=== PATIENT | male | born 1995 | race American Indian/Alaskan Native ===

== ENCOUNTER 2017-11-11 03:25 | Emergency (ER) | payer SELFPAY ==
[2017-11-11 05:12] LABS: Basophils % (Auto) 0.6 % (0.0-1.8); Eosinophils # (Auto) 0.1 K/mm3 (0.0-0.4); Eosinophils % (Auto) 1.1 % (0.0-4.3); Hematocrit 44.9 % (35.5-45.6); Hemoglobin 15.5 gm/dl (11.8-15.2); Lymphocytes # (Auto) 2.7 K/mm3 (1.2-5.4); Lymphocytes % (Auto) 31.6 % (13.4-35.0); Mean Corpuscular HGB Conc 35 % (32-34); Mean Corpuscular Hemoglobin 31 pg (28-32); Mean Corpuscular Volume 90 fl (84-94); Monocytes # (Auto) 0.8 K/mm3 (0.0-0.8); Monocytes % (Auto) 9.7 % (0.0-7.3); Platelet Count 342 K/mm3 (140-440); Red Blood Count 4.99 M/mm3 (3.65-5.03); Red Cell Distribution Width 13.2 % (13.2-15.2)
[2017-11-11 05:29] LABS: BUN/Creatinine Ratio 16; Blood Urea Nitrogen 18 mg/dL (9-20); Calcium 10.1 mg/dL (8.4-10.2); Hemolysis Index 3
[2017-11-11 06:21] LABS: Bacteria,Urine 1+ /HPF (Negative); Bilirubin,Urine NEG (Negative); Blood,Urine NEG (Negative); Color,Urine Yellow (Yellow); Mucus,Urine FEW /HPF; Protein,Urine <15 mg/dL mg/dL (Negative); Urobilinogen,Urine < 2.0 mg/dL (<2.0)
[2017-11-11 06:30] LABS: Amphetamine Screen,Urine PRESUMPTIVE NEGATIVE; Benzodiazepines Screen,Urine PRESUMPTIVE NEGATIVE; Cannabinoid Screen,Urine PRESUMPTIVE NEGATIVE; Cocaine Screen,Urine PRESUMPTIVE NEGATIVE; Methadone Screen,Urine PRESUMPTIVE NEGATIVE; Opiate Screen,Urine PRESUMPTIVE NEGATIVE
[2017-11-11 08:22] VITALS: BP 124/76
== END 2017-11-11 04:39 | disposition left against medical advice (07) ==
LOC: ED 03:25
DX: R45.851 Suicidal ideations (principal); Z53.21 Procedure and treatment not carried out due to patient leaving prior to being seen by health care provider
CPT/HCPCS: 36415; 80048; 80307; 81001; 85025; G0480; 80320

== ENCOUNTER 2019-10-02 00:49 | Emergency (ER) | payer SELFPAY ==
[2019-10-02 03:39] LABS: Basophils # (Auto) 0.1 K/mm3 (0.0-0.1); Basophils % (Auto) 0.9 % (0.0-1.8); Eosinophils # (Auto) 0.1 K/mm3 (0.0-0.4); Eosinophils % (Auto) 1.3 % (0.0-4.3); Lymphocytes # (Auto) 3.1 K/mm3 (1.2-5.4); Lymphocytes % (Auto) 42.4 % (13.4-35.0); Monocytes # (Auto) 0.6 K/mm3 (0.0-0.8); Monocytes % (Auto) 8.6 % (0.0-7.3)
[2019-10-02 03:54] LABS: Mean Corpuscular HGB Conc 34 % (32-34); Mean Corpuscular Volume 92 fl (84-94); Platelet Count 310 K/mm3 (140-440); Red Blood Count 4.79 M/mm3 (3.65-5.03); Red Cell Distribution Width 13.6 % (13.2-15.2)
[2019-10-02 03:57] LABS: Bilirubin,Urine NEG (Negative); Blood,Urine NEG (Negative); Color,Urine Yellow (Yellow); Mucus,Urine 3+ /HPF; Urobilinogen,Urine < 2.0 mg/dL (<2.0)
[2019-10-02 04:02] LABS: Amphetamine Screen,Urine PRESUMPTIVE NEGATIVE; Benzodiazepines Screen,Urine PRESUMPTIVE NEGATIVE; Cannabinoid Screen,Urine PRESUMPTIVE NEGATIVE; Cocaine Screen,Urine PRESUMPTIVE NEGATIVE; Methadone Screen,Urine PRESUMPTIVE NEGATIVE; Opiate Screen,Urine PRESUMPTIVE NEGATIVE
[2019-10-02 04:38] LABS: BUN/Creatinine Ratio 10; Blood Urea Nitrogen 10 mg/dL (9-20); Calcium 9.1 mg/dL (8.4-10.2); Hemolysis Index 41
--- NOTE | 2019-10-02 04:51 | Emergency Department Report ---
ED Psych HPI - General Chief Complaint: Psych Stated Complaint: SUICIDAL/MH EVAL Time Seen by Provider: 10/02/19 04:47 Source: patient Mode of arrival: Ambulatory - History of Present Illness Initial Comments: 24-year-old male with no previous psychiatric diagnosis presents to ED with suicidal ideations. Patient states he has been feeling this way for several months now. Patient reports he confided in a friend and the friend called police. Police urged him to come to the emergency room for mental health evaluation. Patient states "I have been depressed my whole life." He denies any drug or alcohol abuse. Denies any HI or hallucinations. Patient has no plan for suicide. MD Complaint: suicidal ideation -: month(s) (3) Associated Psychiatric Symptoms: depression Improves With: none Worsens With: none Associated Symptoms: denies other symptoms Treatments Prior to Arrival: none If Self Harm: admits thoughts of - Related Data Home Medications Medication Instructions Recorded Confirmed Last Taken No Known Home Medications [No 10/02/19 10/02/19 Unknown Reported Home Medications] Allergies Allergy/AdvReac Type Severity Reaction Status Date / Time No Known Allergies Allergy Unverified 11/11/17 04:31 ED Review of Systems ROS: Stated complaint: SUICIDAL/MH EVAL Other details as noted in HPI Comment: All other systems reviewed and negative Psychiatric: depression, suicidal thoughts ED Past Medical Hx - Past Medical History Hx Psychiatric Treatment: Yes (depression) - Surgical History Past Surgical History?: No - Social History Smoking Status: Never Smoker Substance Use Type: None - Medications Home Medications: Home Medications Medication Instructions Recorded Confirmed Last Taken Type No Known Home Medications [No 10/02/19 10/02/19 Unknown History Reported Home Medications] ED Physical Exam - General Limitations: No Limitations General appearance: alert, in no apparent distress - Head Head exam: Present: atraumatic, normocephalic - Eye Eye exam: Present: normal appearance, EOMI - ENT ENT exam: Present: mucous membranes moist - Neck Neck exam: Present: normal inspection - Respiratory Respiratory exam: Present: normal lung sounds bilaterally. Absent: respiratory distress - Cardiovascular Cardiovascular Exam: Present: regular rate, normal rhythm - GI/Abdominal GI/Abdominal exam: Present: soft. Absent: distended - Extremities Exam Extremities exam: Present: normal inspection - Neurological Exam Neurological exam: Present: alert, oriented X3 - Psychiatric Psychiatric exam: Present: depressed, suicidal ideation - Skin Skin exam: Present: warm, dry, intact, normal color ED Course Vital Signs 10/02/19 10/02/19 10/02/19 01:37 05:43 05:44 Temperature 97.8 F 97.9 F Pulse Rate 62 63 Respiratory 18 20 20 Rate Blood Pressure 108/79 Blood Pressure 125/80 [Left] O2 Sat by Pulse 99 99 Oximetry 10/02/19 08:00 Temperature 97.9 F Pulse Rate 66 Respiratory 18 Rate Blood Pressure Blood Pressure 96/58 [Left] O2 Sat by Pulse 100 Oximetry ED Medical Decision Making - Lab Data Result diagrams: 10/02/19 03:18 10/02/19 03:18 - Medical Decision Making 24-year-old male with depression and suicidal ideation without a plan. Patient states he has been depressed for his entire life. Admitted this to a friend and police were called. Patient has never been evaluated by a counselor or psychiatrist. Labs are unremarkable. Patient is medically clear for mental health evaluation. Will dispo per psych. - Differential Diagnosis depression, SI Critical care attestation.: If time is entered above; I have spent that time in minutes in the direct care of this critically ill patient, excluding procedure time. ED Disposition Clinical Impression: Major depression Qualifiers: Major depression recurrence: single episode Active/Remission status: currently active Major depression episode severity: mild Qualified Code(s): F32.0 - Major depressive disorder, single episode, mild Disposition: DC-01 TO HOME OR SELFCARE Is pt being admited?: No Condition: Stable Additional Instructions: Professional and Agency Contacts To help Resolve Crises(19/10) [place] Crisis Line: Suicide Prevention Line: Crisis Text Line: Text START to [phone] Emergency: 911 Outpatient COMMUN[facility] Behavioral Health Resources: [facility]: [facility] - [address] [place] [address] Wednesday thru Wednesday - 8am - 5pm [facility] Address: [address] [place] [address] Wednesday thru Wednesday- 7am-2pm [facility] Address: [address] [place] [address] Wednesday thru Ja[place]: 8:30AM-5PM Referrals: PRIMARY CARE, [Primary Care Provider] - 3-5 Days
[2019-10-02 08:35] VITALS: BP 96/58
== END 2019-10-02 17:29 | disposition home or self-care (01) ==
LOC: ED 00:49 → EEVIPCON 00:49 → ED 17:29
DX: F32.9 Major depressive disorder, single episode, unspecified (principal); R45.851 Suicidal ideations
CPT/HCPCS: 36415; 80048; 80307; 80320; 81001; 85025; 99284; G0480